=== PATIENT | female | born 1955 | race Caucasian/White ===

== ENCOUNTER 2020-01-26 12:20 | Emergency (ER) | payer MEDICARE ==
[~2020-01-26] VITALS: Ht 165.1 cm; Wt 57.7 kg
[2020-01-26] MEDS ORDERED: normal saline 1000ML IV soln IVB ONE (13:20)
[2020-01-26 14:01] LABS: BASOPHILS # (AUTO) 0.1 X10'3 (0-0.2); EOSINOPHILS # (AUTO) 0.1 X10'3 (0-0.9); EOSINOPHILS % (AUTO) 1.6 % (0-6); HEMATOCRIT 47.5 % (35.0-45.0); HEMOGLOBIN 16.2 g/dl (12.0-16.0); LYMPHOCYTES # (AUTO) 1.6 X10'3 (1.1-4.8); LYMPHOCYTES % (AUTO) 16.8 % (21-51); MEAN CORPUSCULAR HEMOGLOBIN 32.3 PG (27.0-31.0); MEAN PLATELET VOLUME 7.6 FL (7.4-10.4); NEUTROPHILS # (AUTO) 6.6 X10'3 (1.8-7.7); NEUTROPHILS % (AUTO) 69.6 % (42-75); PLATELET COUNT 334 X10'3 (140-440); WHITE BLOOD COUNT 9.4 X10'3 (4.5-11.0)
[2020-01-26 14:22] LABS: ALANINE AMINOTRANSFERASE 26 U/L (12-78); ALBUMIN 3.7 G/DL (3.4-5.0); ALBUMIN/GLOBULIN RATIO 1.1 (1.1-1.5); ALKALINE PHOSPHATASE 127 IU/L (46-116); ANION GAP 8 (8-16); ASPARTATE AMINO TRANSFERASE 23 U/L (10-37); BILIRUBIN,TOTAL 0.5 MG/DL (0.1-1.0); BLOOD UREA NITROGEN 5 MG/DL (7-18); BUN/CREATININE RATIO 9.4 (6.6-38.0); CALCIUM 9.3 MG/DL (8.5-10.1); CHLORIDE 99 MMOL/L (99-107); CREATININE 0.53 MG/DL (0.40-0.90); GLUCOSE 116 MG/DL (70-104); LIPASE 52 U/L (73-393); POTASSIUM 3.6 MMOL/L (3.5-5.1); SODIUM 134 MMOL/L (135-145); TOTAL CARBON DIOXIDE 26.6 MMOL/L (24-32); TOTAL PROTEIN 7.2 G/DL (6.4-8.2); eGFR > 90 ML/MIN
[2020-01-26] MEDS ORDERED: iohexol 300mg/ml 100ml inj. ONE (14:40)
[2020-01-26] MEDS ORDERED: LORazepam 2 mg/ml vial IV ONE (15:00)
[2020-01-26] MEDS ORDERED: morphine 4 MG/ML inj SYRINge IV ONE (15:00)
[2020-01-26] MEDS ORDERED: ondansetron/PF 4mg/2ml inj IV ONE (15:00)
[2020-01-26 19:01] LABS: CLARITY,URINE CLEAR (Clear); COLOR,URINE YELLOW (Yellow); GLUCOSE, URINE NEGATIVE (Neg); KETONES,URINE NEGATIVE (Neg); LEUKOCYTE ESTERASE ,URINE NEGATIVE (Neg); NITRITES, URINE NEGATIVE (Neg); OCCULT BLOOD,URINE TRACE-INTACT (Neg); PROTEIN,URINE NEGATIVE (Neg); UROBILINOGEN,URINE 0.2 E.U/dL (0.2-1.0)
[2020-01-26 19:12] LABS: UA COLLECTION TYPE CLN CATCH MIDSTREAM
[2020-01-26 19:14] LABS: BACTERIA,URINE FEW /HPF (Neg); RBC,URINE 0-2 /HPF (0-2); SQUAMOUS EPITHELIAL CELL,UR FEW /LPF (FEW); WBC,URINE NONE SEEN /HPF (0-4)
[2020-01-26 19:26] VITALS: BP 110/58
== END 2020-01-26 19:23 | disposition home or self-care (01) ==
LOC: ER 12:21
DX: S22.088A Other fracture of T11-T12 vertebra, initial encounter for closed fracture (principal); K59.00 Constipation, unspecified; S22.089A Unspecified fracture of T11-T12 vertebra, initial encounter for closed fracture; Z20.828 Contact with and (suspected) exposure to other viral communicable diseases; X58.XXXA Exposure to other specified factors, initial encounter; Y93.9 Activity, unspecified; Y92.89 Other specified places as the place of occurrence of the external cause; Y99.8 Other external cause status
CPT/HCPCS: 36415; 74177; 80053; 81001; 83690; 85025; 87635; 96361; 96374; 96375; 99285; J2060; J2270; J2405; J7030; Q9967

== ENCOUNTER 2023-03-04 10:59 | Day surgery (SDC) | payer MEDICARE ==
[~2023-03-04] VITALS: Ht 157.5 cm; Wt 54.6 kg
[2023-03-04] MEDS ORDERED: IPRA3AMP31 NEB (11:25)
[2023-03-04] MEDS ORDERED: PRAV20TA4 PO (11:25)
[2023-03-04] MEDS ORDERED: LIDO1ADH44 TOP (11:25)
[2023-03-04] MEDS ORDERED: ACET-75 PO (11:25)
[2023-03-04] MEDS ORDERED: DICL100G59 TOP (11:25)
[2023-03-04] MEDS ORDERED: CYCL-1 PO (11:25)
[2023-03-04] MEDS ORDERED: LIDO700A47 TOP (11:25)
[2023-03-04] MEDS ORDERED: GABA-530 PO (11:25)
[2023-03-04] MEDS ORDERED: LEVO100T78 PO (11:25)
[2023-03-04 12:32] VITALS: RESP 15; O2SAT 97
[2023-03-04] MEDS ORDERED: LIDOcaine 1% 30ml preserv. free vial SQ STA (12:43)
[2023-03-04] MEDS ORDERED: normal saline 1000ml 1,000 ML IV SCH (12:45)
[2023-03-04 12:50] VITALS: BP 143/80; PULSE 86; RESP 15; O2SAT 96
== END 2023-03-04 13:30 | disposition home or self-care (01) ==
LOC: SSTAY O 10:59
PROVIDERS: ATTEND Radiology Diagnostic Radiology
DX: K11.8 Other diseases of salivary glands (principal); D11.0 Benign neoplasm of parotid gland; E89.0 Postprocedural hypothyroidism; E89.2 Postprocedural hypoparathyroidism; E78.00 Pure hypercholesterolemia, unspecified; Z79.890 Hormone replacement therapy; Z79.899 Other long term (current) drug therapy
CPT/HCPCS: 10005